=== PATIENT | male | born 1995 | race Caucasian/White ===

== ENCOUNTER 2024-01-30 05:12 | Emergency (ER) | payer SELFPAY ==
[~2024-01-30] VITALS: Ht 180.3 cm; Wt 86.0 kg
[2024-01-30 05:20] VITALS: O2SAT 98
[2024-01-30] MEDS: KETOROLAC 30MG/ML VIAL IM ONE (06:21)
[2024-01-30] MEDS: METHOCARBAMOL 500MG TABLET PO ONE (06:21)
[2024-01-30] MEDS ORDERED: IBUP-2029 MT (07:16)
[2024-01-30] MEDS ORDERED: METH-653 MT (07:16)
[2024-01-30] MEDS: HYDROCODONE/ACETAMINOPHEN 5/325MG TABLET PO ONE (08:08)
[2024-01-30 10:36] VITALS: BP 123/74; PULSE 64; RESP 16; TEMP 98.3
== END 2024-01-30 10:38 | disposition home or self-care (01) ==
LOC: ER 05:12
DX: S33.5XXA Sprain of ligaments of lumbar spine, initial encounter (principal); X58.XXXA Exposure to other specified factors, initial encounter; Y93.89 Activity, other specified; Y92.89 Other specified places as the place of occurrence of the external cause; Y99.8 Other external cause status
CPT/HCPCS: 99285; 72131; 96372; J1885